=== PATIENT | male | born 1935 | race Caucasian/White ===

== ENCOUNTER 2017-04-13 10:16 | Outpatient (CLI) | payer OTHER ==
[~2017-04-13 10:16] MED LIST: ACIDOPHILUS1 EAC3 PO; CIPRO500 MG PO; LYSIPLEX PLUS178 ML PO
== END 2017-04-13 13:54 | disposition home or self-care (01) ==
LOC: RAD 501 10:16
DX: M41.20 Other idiopathic scoliosis, site unspecified (principal)

== ENCOUNTER 2017-04-13 12:10 | Outpatient (CLI) | payer OTHER | END 2017-04-13 16:15 | disposition home or self-care (01) | LOC: MRI 12:10 | DX: M51.36 Other intervertebral disc degeneration, lumbar region (principal) | CPT/HCPCS: 72148 ==

== ENCOUNTER 2017-05-05 09:09 | Outpatient (CLI) | payer OTHER | END 2017-05-05 09:12 | disposition home or self-care (01) | LOC: NUCLEAR 09:09 | DX: C61 Malignant neoplasm of prostate (principal); C79.51 Secondary malignant neoplasm of bone | CPT/HCPCS: 78306; A9503 ==

== ENCOUNTER → 2017-08-30 | Outpatient (CLI) | payer OTHER | END | disposition home or self-care (01) | LOC: NUCLEAR 08:30 | DX: C61 Malignant neoplasm of prostate (principal); C79.51 Secondary malignant neoplasm of bone | CPT/HCPCS: 78306; A9503 ==

== ENCOUNTER 2017-11-12 00:56 | Emergency (ER) | payer OTHER ==
[~2017-11-12] VITALS: Ht 170.2 cm; Wt 81.6 kg
[2017-11-12] MEDS ORDERED: ANALAPRIL (01:12)
[2017-11-12] MEDS ORDERED: IBUPROFEN600 MG PO (06:04)
== END 2017-11-12 06:27 | disposition home or self-care (01) ==
LOC: ER 00:56 → CPU-OBS 00:59 → ER 00:59
DX: R07.89 Other chest pain (principal)

== ENCOUNTER 2017-11-15 12:14 | Emergency (ER) | payer OTHER ==
[~2017-11-15] VITALS: Ht 180.3 cm; Wt 68.0 kg
[~2017-11-15 12:14] MED LIST changes: +ANALAPRIL; +IBUPROFEN600 MG PO
[2017-11-15] MEDS ORDERED: SKELAXIN800 MG PO (15:50)
[2017-11-15] MEDS ORDERED: CELECOXIB100 MG PO (15:50)
== END 2017-11-15 16:34 | disposition home or self-care (01) ==
LOC: ER 12:14
DX: S30.0XXA Contusion of lower back and pelvis, initial encounter (principal); S00.83XA Contusion of other part of head, initial encounter; R42 Dizziness and giddiness; W01.198A Fall on same level from slipping, tripping and stumbling with subsequent striking against other object, initial encounter; Y93.89 Activity, other specified; Y92.018 Other place in single-family (private) house as the place of occurrence of the external cause; Y99.8 Other external cause status

== ENCOUNTER 2018-03-17 17:38 | Emergency (ER) | payer OTHER ==
[~2018-03-17] VITALS: Ht 180.3 cm; Wt 59.0 kg
[~2018-03-17 17:38] MED LIST changes: +CELECOXIB100 MG PO; +SKELAXIN800 MG PO
[2018-03-17] MEDS ORDERED: PRISTIQ25 MG (17:46)
[2018-03-17] MEDS ORDERED: ORAPRED ODT10 MG (17:46)
[2018-03-17] MEDS ORDERED: ZYTIGA250 MG (17:47)
== END 2018-03-17 23:46 | disposition home or self-care (01) ==
LOC: ER 17:38
DX: R63.0 Anorexia (principal)

== ENCOUNTER 2018-07-12 14:42 | Emergency (ER) | payer OTHER ==
[~2018-07-12] VITALS: Ht 180.3 cm; Wt 63.5 kg
[~2018-07-12 14:42] MED LIST changes: +ORAPRED ODT10 MG; +PRISTIQ25 MG; +ZYTIGA250 MG
[2018-07-12] MEDS ORDERED: DEPAKOTE SPRIN125 MG (16:34)
[2018-07-12] MEDS ORDERED: PREDNISONE5 M1 (16:35)
[2018-07-12] MEDS ORDERED: CLONAZEPAM0.5 MG (16:35)
[2018-07-12] MEDS ORDERED: ZYTIGA500 MG (16:35)
[2018-07-12] MEDS ORDERED: ARICEPT10 MG (16:35)
[2018-07-12] MEDS ORDERED: ZOLOFT50 MG (16:36)
[2018-07-12] MEDS ORDERED: REMERON15 MG (16:36)
== END 2018-07-12 21:22 | disposition home or self-care (01) ==
LOC: ER 14:42
DX: G40.89 Other seizures (principal)

== ENCOUNTER 2018-07-27 17:47 | Inpatient (IN) | payer OTHER ==
[~2018-07-27] VITALS: Ht 182.9 cm; Wt 63.5 kg
[~2018-07-27 17:47] MED LIST changes: +ARICEPT10 MG; +CLONAZEPAM0.5 MG; +DEPAKOTE SPRIN125 MG; +PREDNISONE5 M1; +REMERON15 MG; +ZOLOFT50 MG; +ZYTIGA500 MG
--- NOTE | 2018-07-27 18:08 | NUR ---
PTE SE RECIBE POR GENERAL MALAISE NO COME DEBILIDAD REFIERE PARAMEDICO Y FAMILIAR.
--- NOTE | 2018-07-27 20:24 | NUR ---
SE ORIENTA PTE Y FAMILIAR SOBRE TX MEDICO EL CUAL REFIERE ENTENDER.SE LE EXTRAEN MUESTRAS,SE CANALIZA Y SE LE ADMINISTRA MEDICAMENTO ADRIAN ORDEN MEDICA.SE INSERTA ANDRADE BAJO MEDIDAS ASEPTICA,PTE PRESENTA ORINA CON OLOR FETIDO Y PURULENTA.
--- NOTE | 2018-07-28 01:09 | NUR ---
SE RECIBE MASCULINO ALERTA EN JAY JAY CON BARANDAS SEGURAS Y ELEVADAS. EN COMPANIA DE FAMILIAR. AREA DE VENOPUNCION ANITA DE EDEMA O ENROJECIMIENTO. SE OBSERVA ANDRADE CON ORINA COLOR AMARILLO Y SEDIMENTACION. SE MANTIENE EN OBSERVACION POR CAMBIOS.
--- NOTE | 2018-07-28 08:09 | NUR ---
SE RECIBE PTE ALERTA Y CONCINETE POR 3 EN JAY JAY CON BARANDAS ELEVADA Y TIMBRE ACCESIBLE EN COMPANIA DE GRANT FAMILIAR SE OBSERVA VENOPUNCION PATENTE Y ANITA DE EDEMA, PTE EN ESPERA DEL DR IRVING PTE SE MANTIENE EN OBSERVACION Y BAJO TRATAMIENTO.
[2018-08-04] MEDS ORDERED: FLUCONAZOLE100 MG PO (14:10)
[2018-08-04] MEDS ORDERED: CIPRO500 MG PO (14:10)
== END 2018-08-04 15:15 | disposition home or self-care (01) | DRG 872 ==
LOC: ER 17:47 → MEDI 07-28 08:37
PROVIDERS: ADMIT Student in an Organized Health Care Education/Training Program
PROC: BW28ZZZ Computerized Tomography (CT Scan) of Head (ICD-10-PCS; principal; 2018-07-28)
PROC: BT43ZZZ Ultrasonography of Bilateral Kidneys (ICD-10-PCS; 2018-07-28)
PROC: 30233N1 Transfusion of Nonautologous Red Blood Cells into Peripheral Vein, Percutaneous Approach (ICD-10-PCS; 2018-07-31)
PROC: 8E0ZXY6 Isolation (ICD-10-PCS; 2018-08-03)
DX: A41.9 Sepsis, unspecified organism (principal); N39.0 Urinary tract infection, site not specified; E27.49 Other adrenocortical insufficiency; N13.39 Other hydronephrosis; D63.8 Anemia in other chronic diseases classified elsewhere; F02.80 Dementia in other diseases classified elsewhere, unspecified severity, without behavioral disturbance, psychotic disturbance, mood disturbance, and anxiety; I10 Essential (primary) hypertension; Z74.01 Bed confinement status; R63.0 Anorexia; G31.89 Other specified degenerative diseases of nervous system; G30.0 Alzheimer's disease with early onset; B95.2 Enterococcus as the cause of diseases classified elsewhere; Z85.46 Personal history of malignant neoplasm of prostate; Z08 Encounter for follow-up examination after completed treatment for malignant neoplasm

== ENCOUNTER 2019-02-11 17:51 | Emergency (ER) | payer OTHER ==
[~2019-02-11] VITALS: Ht 182.9 cm; Wt 63.5 kg
[~2019-02-11 17:51] MED LIST changes: +FLUCONAZOLE100 MG PO
[2019-02-11] MEDS ORDERED: CENTRUM SILVER1 EAC1 PO (18:11)
[2019-02-11] MEDS ORDERED: NAMENDA10 MG PO (18:11)
[2019-02-11] MEDS ORDERED: MEGESTROL ACETA40 MG PO (18:12)
== END 2019-02-11 23:45 | disposition home or self-care (01) ==
LOC: ER 17:51
DX: L89.159 Pressure ulcer of sacral region, unspecified stage (principal); L89.311 Pressure ulcer of right buttock, stage 1; L08.89 Other specified local infections of the skin and subcutaneous tissue; B96.1 Klebsiella pneumoniae [K. pneumoniae] as the cause of diseases classified elsewhere; B96.4 Proteus (mirabilis) (morganii) as the cause of diseases classified elsewhere; B95.2 Enterococcus as the cause of diseases classified elsewhere; B96.5 Pseudomonas (aeruginosa) (mallei) (pseudomallei) as the cause of diseases classified elsewhere; B96.6 Bacteroides fragilis [B. fragilis] as the cause of diseases classified elsewhere